=== PATIENT | female | born 1970 | race Caucasian/White ===

== ENCOUNTER → 2021-04-26 | Day surgery (SDC) | payer OTHER ==
[~2021-04-26] VITALS: Ht 170.2 cm; Wt 112.0 kg
[~2021-04-26] MED LIST: AMITRIPTYLINE H50 MG PO; ASPIRIN EC81 MG PO; ATIVAN1 MG PO; ATORVASTATIN CA20 MG PO; BUSPIRONE HCL10 MG PO; FLONASE ALLER15.8 ML; MIRALAX17 G1 PO; MOBIC7.5 MG PO; NORCO 5-325 TA1 EACH PO; NORVASC2.5 MG PO; PEPCID AC20 MG PO; PRILOSEC20 MG PO; STIMULANT LAXA1 EACH PO; TIZANIDINE HCL4 M1 PO; VENTOLIN HFA IN18 GM INH
[2021-04-26 08:21] LABS: HCG (URINE) SCREEN NEGATIVE (NEGATIVE)
[2021-04-26 08:36] LABS: BASOPHIL 0.5 % (0-2); EOSINOPHIL 3.1 % (0-5); HCT 36.8 % (37.0-47.0); HGB 12.4 g/dl (12.5-16.0); LYMPHOCYTE 26.9 % (15-48); MCH 31.9 pg (25.0-31.0); MCHC 33.7 g/dL (32.0-36.0); MCV 94.6 fL (78.0-100.0); MPV 10.5 fL (6.0-9.5); NEUTROPHIL 61.8 % (41-80); NRBC 0; PLT 225 K/uL (150-400); RBC 3.89 M/uL (4.20-5.40); RDW 15.6 % (11.5-14.0); WBC 12.1 K/uL (4.0-10.5)
[2021-04-26 08:56] LABS: BUN/CREAT RATIO (CALC) 11.9 RATIO; CREATININE 0.84 mg/dL (0.51-0.95); POTASSIUM 4.1 mmol/L (3.5-5.1)
== END | disposition home or self-care (01) ==
LOC: FAS 07:41
PROVIDERS: Anesthesiology; Oral & Maxillofacial Surgery
DX: K02.9 Dental caries, unspecified (principal); J44.9 Chronic obstructive pulmonary disease, unspecified; F17.200 Nicotine dependence, unspecified, uncomplicated; Z88.2 Allergy status to sulfonamides; Z20.822 Contact with and (suspected) exposure to COVID-19; Z86.16 Personal history of COVID-19; Z88.8 Allergy status to other drugs, medicaments and biological substances; E66.9 Obesity, unspecified; F41.9 Anxiety disorder, unspecified
CPT/HCPCS: 36415; 71045; 80048; 84703; 85025; 93005; J1100; J2250; J2370; J2405; J2704; J3010; J7120